=== PATIENT | female | born 1975 | race Caucasian/White ===

== ENCOUNTER 2020-09-25 11:44 | Emergency (ER) | payer BC, SELFPAY ==
[~2020-09-25] VITALS: Ht 160 cm; Wt 81.2 kg
[2020-09-25 11:50] VITALS: BP_SYST 115
[2020-09-25 12:50] VITALS: BP_SYST 114
== END 2020-09-25 12:50 | disposition home or self-care (01) ==
LOC: SED 11:44
DX: R50.9 Fever, unspecified (principal); Z20.822 Contact with and (suspected) exposure to COVID-19
CPT/HCPCS: 99283; C9803; U0003